=== PATIENT | male | born 1990 | race Caucasian/White ===

== ENCOUNTER → 2017-10-13 | Outpatient (REF) | payer BC ==
[2017-10-13 13:43] LABS: FERRITIN 90 NG/ML (26-388); IRON (FE) 117 UG/DL (65-175); PERCENT SATURATION 36.1 % (19.7-50.0); TOTAL IRON BINDING CAPACITY 324 UG/DL (250-450)
[2017-10-13 13:52] LABS: VITAMIN B12 LEVEL 372 PG/ML
[2017-10-13 13:53] LABS: FOLATE 15.1 NG/ML
[2017-10-13 14:02] LABS: HEPATITIS B SURFACE ANTIGEN NEGATIVE (NEGATIVE)
[2017-10-13 14:28] LABS: HEPATITIS B CORE ANTIBODY IGM NEGATIVE (NEGATIVE)
[2017-10-13 14:30] LABS: HEPATITIS A ANTIBODY IGM NEGATIVE (NEGATIVE)
== END ==
LOC: M LAB REF 12:18
DX: R79.89 Other specified abnormal findings of blood chemistry (principal)

== ENCOUNTER → 2022-10-15 | Outpatient (CLI) | payer BC, MEDICARE | LOC: M WUC 15:00 | PROVIDERS: ATTEND Family Medicine Addiction Medicine | DX: M25.561 Pain in right knee (principal) ==

== ENCOUNTER → 2022-10-17 | Outpatient (REF) | payer MEDICARE ==
[2022-10-17 12:45] LABS: BASO % 0.5 % (0.0-1.0); EOS # 0.1 10^3/uL (0.0-0.5); EOS % 1.9 % (0.0-3.0); HEMATOCRIT 45.4 % (42.0-52.0); HEMOGLOBIN 15.6 g/dl (13.5-17.5); LYMPH # 1.8 10^3/uL (1.5-5.0); LYMPH % 28.8 % (24.0-44.0); MEAN CORPUSCULAR HEMOGLOBIN 31.1 pg (27.0-33.0); MEAN CORPUSCULAR HGB CONC 34.4 g/dl (32.0-36.5); MEAN CORPUSCULAR VOLUME 90.4 fl (80.0-96.0); MONO # 0.8 10^3/uL (0.0-0.8); MONO % 13.2 % (2.0-8.0); NEUTROPHILS # 3.5 10^3/uL (1.5-8.5); NEUTROPHILS % 55.4 % (36.0-66.0); PLATELET COUNT, AUTOMATED 280 10^3/uL (150-450); RED BLOOD COUNT 5.02 10^6/uL (4.30-6.10); WHITE BLOOD COUNT 6.4 10^3/uL (4.0-10.0)
[2022-10-17 13:53] LABS: ALKALINE PHOSPHATASE 122 U/L (46-116); ALT/SGPT 22 U/L (7.0-40); AST/SGOT 17 U/L (<34); BLOOD UREA NITROGEN 16 MG/DL (9-23); CALCIUM LEVEL 8.9 MG/DL (8.5-10.1); CARBON DIOXIDE LEVEL 29 MMOL/L (20-31); CHLORIDE LEVEL 105 MMOL/L (98-107); CREATININE FOR GFR 0.87 MG/DL (0.70-1.30); FREE T4 1.17 NG/DL (0.89-1.76); GLOMERULAR FILTRATION RATE > 60.0 (>60); GLUCOSE, FASTING 80 MG/DL (60-100); POTASSIUM SERUM 4.6 MMOL/L (3.5-5.1); SODIUM LEVEL 142 MMOL/L (136-145); TESTOSTERONE 429 NG/DL (241-827); THYROID STIMULATING HORMONE 1.826 uIU/ML (0.55-4.78); TOTAL PROTEIN 6.9 G/DL (5.7-8.2)
[2022-10-17 14:08] LABS: HEPATITIS B SURFACE ANTIGEN NEGATIVE (NEGATIVE)
[2022-10-17 16:21] LABS: HEPATITIS B SURFACE ANTIBODY NEGATIVE (POSITIVE)
== END ==
LOC: M LAB REF 12:24
PROVIDERS: ATTEND Family Medicine Addiction Medicine
DX: R74.8 Abnormal levels of other serum enzymes (principal); R53.83 Other fatigue

== ENCOUNTER 2023-04-19 19:52 | Emergency (ER) | payer MEDICARE, OTHER ==
[~2023-04-19] VITALS: Ht 188 cm; Wt 113.4 kg
[2023-04-19 23:02] VITALS: BP 138/45; TEMP 97.3; O2SAT 100
== END 2023-04-19 23:05 | disposition home or self-care (01) ==
LOC: M ED 19:52
DX: S92.415A Nondisplaced fracture of proximal phalanx of left great toe, initial encounter for closed fracture (principal); F10.10 Alcohol abuse, uncomplicated; Y93.75 Activity, martial arts

== ENCOUNTER → 2023-07-30 | Outpatient (CLI) | payer OTHER ==
[~2023-07-30] MED LIST: PROHANCE 279.3MG/ML 15ML VIAL ONE; PROHANCE 279.3MG/ML 5ML VIAL ONE
== END ==
LOC: M PLAIMG 09:42
PROVIDERS: ATTEND Ophthalmology
DX: H54.7 Unspecified visual loss (principal); H05.89 Other disorders of orbit
CPT/HCPCS: 70540; 70553; A9576

== ENCOUNTER → 2024-01-12 | Outpatient (CLI) | payer BC | LOC: M PLAIMG 09:39 | PROVIDERS: ATTEND Ophthalmology Neuro-ophthalmology | DX: H05.89 Other disorders of orbit (principal) | CPT/HCPCS: 70543; A9576 ==

== ENCOUNTER → 2024-01-31 | Outpatient (CLI) | payer BC ==
[2024-01-31 10:54] LABS: C REACTIVE PROTEIN QUANTITATIV < 0.40 MG/DL (<1.0)
[2024-01-31 11:00] LABS: FREE T3 3.8 PG/ML (2.3-4.2); THYROID STIMULATING HORMONE 1.303 uIU/ML (0.55-4.78)
[2024-01-31 11:01] LABS: FOLATE 13.01 NG/ML (>5.4); FREE T4 1.11 NG/DL (0.89-1.76)
[2024-01-31 11:49] LABS: VITAMIN B12 LEVEL 449 PG/ML (211-911)
[2024-02-04 10:32] LABS: ANA SCREEN, IFA POSITIVE (NEGATIVE); ANA TITER 1:40 titer (<1:40)
[2024-02-04 17:22] LABS: ANTI-U1 RNP AB <1.0 NEG AI (<1.0 NEG); RNP ANTIBODY <1.0 NEG AI (<1.0 NEG); SM ANTIBODY <1.0 NEG AI (<1.0 NEG); SSA SJOGRENS A <1.0 NEG AI (<1.0 NEG); SSB SJOGRENS B <1.0 NEG AI (<1.0 NEG)
[2024-02-05 09:38] LABS: DRVV SCREEN 36.1 SECONDS
[2024-02-05 09:47] LABS: PTT LUPUS TYPE ANTICOAG SCREEN 0.9 (0-1.20)
[2024-02-12 17:18] LABS: ANTI DS-DNA AB NEGATIVE (NEGATIVE)
== END ==
LOC: M LAB 08:48
PROVIDERS: ATTEND Ophthalmology
DX: H16.223 Keratoconjunctivitis sicca, not specified as Sjogren's, bilateral (principal)

== ENCOUNTER → 2024-03-22 | Outpatient (REF) | payer BC ==
[2024-03-22 18:25] LABS: BASO % 0.3 % (0.0-1.0); EOS % 0.5 % (0.0-3.0); HEMATOCRIT 47.5 % (42.0-52.0); HEMOGLOBIN 16.6 g/dl (13.5-17.5); LYMPH % 31.6 % (24.0-44.0); MEAN CORPUSCULAR HEMOGLOBIN 31.5 pg (27.0-33.0); MEAN CORPUSCULAR HGB CONC 34.9 g/dl (32.0-36.5); MEAN CORPUSCULAR VOLUME 90.1 fl (80.0-96.0); MONO # 0.5 10^3/uL (0.0-0.8); MONO % 8.5 % (2.0-8.0); NEUTROPHILS # 3.7 10^3/uL (1.5-8.5); NEUTROPHILS % 58.8 % (36.0-66.0); PLATELET COUNT, AUTOMATED 309 10^3/uL (150-450); RED BLOOD COUNT 5.27 10^6/uL (4.30-6.10); WHITE BLOOD COUNT 6.3 10^3/uL (4.0-10.0)
[2024-03-22 18:53] LABS: ALBUMIN 4.1 G/DL (3.2-5.2); ALKALINE PHOSPHATASE 88 U/L (46-116); ALT/SGPT 26 U/L (7.0-40); AST/SGOT 15 U/L (<34); BILIRUBIN,TOTAL 2.2 MG/DL (0.3-1.2); BLOOD UREA NITROGEN 18 MG/DL (9-23); CALCIUM LEVEL 8.9 MG/DL (8.5-10.1); CARBON DIOXIDE LEVEL 28 MMOL/L (20-31); CHLORIDE LEVEL 107 MMOL/L (98-107); CREATININE FOR GFR 0.89 MG/DL (0.70-1.30); GLOMERULAR FILTRATION RATE > 60.0 (>60); GLUCOSE, FASTING 77 MG/DL (60-100); POTASSIUM SERUM 4.4 MMOL/L (3.5-5.1); RHEUMATOID FACTOR QUANT < 3.5 IU/ML (<14); SODIUM LEVEL 138 MMOL/L (136-145); TOTAL PROTEIN 6.8 G/DL (5.7-8.2)
== END ==
LOC: M LAB REF 13:03
PROVIDERS: ATTEND Family Medicine Addiction Medicine
DX: R76.8 Other specified abnormal immunological findings in serum (principal)

== ENCOUNTER → 2024-07-06 | Outpatient (CLI) | payer BC | LOC: M RAD 14:59 | PROVIDERS: ATTEND Physician Assistant | DX: R05.9 Cough, unspecified (principal) ==

== ENCOUNTER → 2024-10-25 | Outpatient (REF) | payer BC ==
[2024-10-25 15:55] LABS: BASO % 0.3 % (0.0-1.0); EOS % 0.5 % (0.0-3.0); HEMATOCRIT 51.8 % (42.0-52.0); HEMOGLOBIN 18.1 g/dl (13.5-17.5); LYMPH # 1.8 10^3/uL (1.5-5.0); LYMPH % 26.7 % (24.0-44.0); MEAN CORPUSCULAR HEMOGLOBIN 31.3 pg (27.0-33.0); MEAN CORPUSCULAR HGB CONC 34.9 g/dl (32.0-36.5); MEAN CORPUSCULAR VOLUME 89.5 fl (80.0-96.0); MONO # 0.6 10^3/uL (0.0-0.8); MONO % 9.5 % (2.0-8.0); NEUTROPHILS # 4.2 10^3/uL (1.5-8.5); NEUTROPHILS % 62.7 % (36.0-66.0); PLATELET COUNT, AUTOMATED 320 10^3/uL (150-450); RED BLOOD COUNT 5.79 10^6/uL (4.30-6.10); WHITE BLOOD COUNT 6.6 10^3/uL (4.0-10.0)
[2024-10-25 16:23] LABS: MAGNESIUM LEVEL 1.9 MG/DL (1.8-2.4); PHOSPHORUS LEVEL 3.3 MG/DL (2.5-4.9)
[2024-10-25 16:24] LABS: PERCENT SATURATION 27.6 % (19.7-50.0)
[2024-10-25 16:26] LABS: COMPLEMENT C3 151.5 MG/DL (84.0-160.0); COMPLEMENT C4 25.9 MG/DL (12-36); IMMUNOGLOBULIN M 39.8 MG/DL (50-300)
[2024-10-25 16:28] LABS: FERRITIN 54.1 NG/ML (10.5-307.3); TOTAL 25(OH) VITAMIN D 20.1 NG/ML (20.0-100.0)
== END ==
LOC: M SFHCRHEU 10:42
PROVIDERS: ATTEND Internal Medicine
DX: R76.8 Other specified abnormal immunological findings in serum (principal); M79.18 Myalgia, other site; B99.9 Unspecified infectious disease

== ENCOUNTER → 2024-11-08 | Outpatient (CLI) | payer BC | LOC: M PLAIMG 07:16 | PROVIDERS: ATTEND Ophthalmology Neuro-ophthalmology | DX: H05.89 Other disorders of orbit (principal); H46.9 Unspecified optic neuritis; J34.89 Other specified disorders of nose and nasal sinuses | CPT/HCPCS: 70543; A9576 ==

== ENCOUNTER → 2025-02-25 | Outpatient (CLI) | payer BC | LOC: M WUC 14:43 | PROVIDERS: ATTEND Internal Medicine | DX: M54.12 Radiculopathy, cervical region (principal) ==

== ENCOUNTER → 2025-02-25 | Outpatient (CLI) | payer BC | LOC: M WUC 14:41 | PROVIDERS: ATTEND Family Medicine Addiction Medicine | DX: M25.561 Pain in right knee (principal); M25.461 Effusion, right knee; M54.12 Radiculopathy, cervical region ==

== ENCOUNTER → 2025-03-07 | Outpatient (CLI) | payer BC | LOC: M WUC 14:58 | PROVIDERS: ATTEND Internal Medicine | DX: E55.9 Vitamin D deficiency, unspecified (principal) ==

== ENCOUNTER → 2025-03-24 | Outpatient (CLI) | payer BC | LOC: M PLARAD 14:00 | PROVIDERS: ATTEND Family Medicine Addiction Medicine | DX: M67.51 Plica syndrome, right knee (principal) ==

== ENCOUNTER → 2025-07-02 | Outpatient (CLI) | payer BC ==
[2025-07-02 10:13] LABS: BASO # 0.0 10^3/uL (0.0-0.2); BASO % 0.4 % (0.0-1.0); EOS # 0.1 10^3/uL (0.0-0.5); EOS % 1.0 % (0.0-3.0); LYMPH # 2.1 10^3/uL (1.5-5.0); LYMPH % 30.5 % (24.0-44.0); MONO # 0.7 10^3/uL (0.0-0.8); MONO % 10.2 % (2.0-8.0); NEUTROPHILS # 3.9 10^3/uL (1.5-8.5); NEUTROPHILS % 57.8 % (36.0-66.0); PLATELET COUNT, AUTOMATED 342 10^3/uL (150-450)
[2025-07-02 10:49] LABS: C REACTIVE PROTEIN QUANTITATIV 0.56 MG/DL (<1.0)
[2025-07-02 10:54] LABS: IMMUNOGLOBULIN E 39.2 IU/ML (0-378)
== END ==
LOC: M LAB 09:44
PROVIDERS: ATTEND Allergy & Immunology
DX: J30.89 Other allergic rhinitis (principal); J32.9 Chronic sinusitis, unspecified; D80.1 Nonfamilial hypogammaglobulinemia